=== PATIENT | female | born 1965 | race Caucasian/White ===

== ENCOUNTER → 2016-08-19 | Outpatient (CLI) | payer OTHER ==
[~2016-08-19] MED LIST: ATOR10TA9 PO; DILT180C72 PO; HYDR25TA6 PO; OMEP-110 PO
[2016-08-19 16:19] LABS: ASPARTATE AMINO TRANSFERASE 20 U/L (15-37); BLOOD UREA NITROGEN 24 mg/dL (7-18)
== END | disposition home or self-care (01) ==
LOC: STAR 15:28
PROVIDERS: ATTEND Obstetrics & Gynecology Female Pelvic Medicine and Reconstructive Surgery
DX: Z01.812 Encounter for preprocedural laboratory examination (principal); N39.3 Stress incontinence (female) (male); R10.2 Pelvic and perineal pain; N81.6 Rectocele; N81.10 Cystocele, unspecified
CPT/HCPCS: 36415; 80053

== ENCOUNTER 2016-08-24 10:35 | Day surgery (SDC) | payer OTHER ==
[~2016-08-24] VITALS: Ht 165.1 cm; Wt 60.0 kg
[~2016-08-24 10:35] MED LIST changes: +BUPIVACAINE/PF-EPI 0.25% 1:200K ONE; +FENTANYL PF 250 MCG/5ML ONE; +MIDAZOLAM 1 MG/ML, 2ML ONE; +NEOMY/POLYMYXIN B GU IRR. 1 ML IRRIG ONE
[2016-08-24] MEDS ORDERED: LACTATED RINGERS 1,000 ML IV SCH (11:38)
[2016-08-24] MEDS ORDERED: LABETALOL 5MG/ML, 20ML IV PRN (12:30)
[2016-08-24] MEDS ORDERED: MEPERIDINE/PF 25MG/0.5ML IVPush PRN (12:30)
[2016-08-24] MEDS ORDERED: HYDROmorphone 1 MG/ML, 1ML IV PRN (12:30)
[2016-08-24] MEDS ORDERED: ONDANSETRON 2MG/ML, 2ML IVPush PRN (12:30)
[2016-08-24] MEDS ORDERED: OXYcodone 5 MG/5 ML ORAL.SOL UDC PO PRN (12:30)
[2016-08-24] MEDS ORDERED: METOCLOPRAMIDE 5 MG/ML, 2ML IV PRN (12:30)
[2016-08-24] MEDS ORDERED: PROMETHAZINE 25 MG/ML, 1ML IV PRN (12:30)
[2016-08-24] MEDS ORDERED: MIDAZOLAM 1 MG/ML, 2ML IV PRN (12:30)
[2016-08-24] MEDS ORDERED: hydrALAzine 20 MG/ML, 1ML IV PRN (12:30)
[2016-08-24] MEDS ORDERED: FENTANYL PF 100 MCG/2ML IV PRN (12:30)
[2016-08-24] MEDS ORDERED: ACETAMINOPHEN 325 MG TABLET PO PRN (12:30)
[2016-08-24] MEDS ORDERED: ONDANSETRON 2MG/ML, 2ML ONE (13:16)
[2016-08-24] MEDS ORDERED: DEXAMETHASONE 4 MG/ML, 1ML ONE (13:16)
[2016-08-24] MEDS ORDERED: PROPOFOL 10 MG/ML, 20ML ONE (13:16)
[2016-08-24] MEDS ORDERED: EPHEDRINE 50 MG/ML, 1ML ONE (13:16)
[2016-08-24] MEDS ORDERED: ROCURONIUM 10 MG/ML ONE (13:16)
[2016-08-24] MEDS ORDERED: SUCCINYLCHOLINE 20 MG/ML, 10ML ONE (13:16)
[2016-08-24] MEDS ORDERED: KETOROLAC 30 MG/1 ML ONE (13:16)
[2016-08-24] MEDS ORDERED: CEFAZOLIN 1,000 MG ONE (13:16)
[2016-08-24] MEDS ORDERED: FUROSEMIDE 20 MG/2 ML ONE (13:51)
[2016-08-24] MEDS ORDERED: OXYcodone 5 MG/5 ML ORAL.SOL UDC ONE (14:50)
[2016-08-24] MEDS ORDERED: ACETAMINOPHEN 325 MG TABLET ONE (14:50)
[2016-08-24] MEDS ORDERED: ACETAMINOPHEN 650 MG/20.3 ML UDC ONE (14:50)
== END 2016-08-24 18:38 | disposition home or self-care (01) ==
LOC: OUT 10:35
PROVIDERS: ATTEND Obstetrics & Gynecology Female Pelvic Medicine and Reconstructive Surgery
DX: N81.11 Cystocele, midline (principal); N39.46 Mixed incontinence; N81.6 Rectocele; N81.5 Vaginal enterocele; I10 Essential (primary) hypertension; K21.9 Gastro-esophageal reflux disease without esophagitis; Z87.19 Personal history of other diseases of the digestive system; Z90.710 Acquired absence of both cervix and uterus; Z87.891 Personal history of nicotine dependence; F12.90 Cannabis use, unspecified, uncomplicated; Z72.89 Other problems related to lifestyle; F15.90 Other stimulant use, unspecified, uncomplicated
CPT/HCPCS: 57265; 57282; 57288; C1771; J0330; J0690; J1100; J1885; J1940; J2250; J2405; J2704; J3010; J7120

== ENCOUNTER 2017-11-27 23:08 | Inpatient (IN) | payer OTHER ==
[~2017-11-27] VITALS: Ht 165.1 cm; Wt 70.7 kg
[~2017-11-27 23:08] MED LIST changes: -BUPIVACAINE/PF-EPI 0.25% 1:200K ONE; -FENTANYL PF 250 MCG/5ML ONE; -MIDAZOLAM 1 MG/ML, 2ML ONE; -NEOMY/POLYMYXIN B GU IRR. 1 ML IRRIG ONE
[2017-11-28] MEDS ORDERED: SODIUM CHLORIDE FLUSH 10ML SYR IVF ONE
[2017-11-28] MEDS ORDERED: ACETAMINOPHEN 500 MG TABLET PO ONE
[2017-11-28 00:13] LABS: MEAN CORPUSCULAR HEMOGLOBIN 31.1 pg (27.0-34.8); MEAN CORPUSCULAR HGB CONC 34.1 g/dL (32.4-35.8); MEAN CORPUSCULAR VOLUME 91.3 fL (80-100); MEAN PLATELET VOLUME 8.6 fL (7.4-10.4); PLATELET COUNT 308 x10^3/uL (130-400); RED BLOOD COUNT 4.14 x10^6/uL (3.82-5.3); RED CELL DISTRIBUTION WIDTH 13.4 % (9.6-15.2)
[2017-11-28 00:25] LABS: ALANINE AMINOTRANSFERASE 27 U/L (12-78); ALBUMIN 2.5 g/dL (3.4-5.0); ANION GAP 12 mmol/L (5-15); CALCIUM 8.9 mg/dL (8.5-10.1); CHLORIDE 101 mmol/L (98-107)
[2017-11-28 00:28] LABS: ALKALINE PHOSPHATASE 175 U/L (45-117); BILIRUBIN,TOTAL 0.5 mg/dL (0.2-1.0); CREATININE 0.68 mg/dL (0.55-1.02); MD YES
[2017-11-28 00:30] LABS: BAND#(MANUAL) 1.34 x10^3/uL; BANDS%(MANUAL) 7 % (0-7); LYMPH#(MANUAL) 0.96 x10^3/uL (1-3.4); LYMPHS% (MANUAL) 5 % (22-44); MONOS#(MANUAL) 0.57 x10^3/uL (0.3-2.7); MONOS% (MANUAL) 3 % (2-9); SEG#(MANUAL) 16.24 x10^3/uL (1.8-6.8); SEGS% (MANUAL) 85 % (42-75)
[2017-11-28 00:31] LABS: <PLATELET ESTIMATE> ADEQUATE; <PLT MORPHOLOGY> NORMAL PLT MORPH; <RBC MORPHOLOGY> NORMAL
[2017-11-28] MEDS ORDERED: ACETAMINOPHEN 500 MG TABLET ONE (00:44)
[2017-11-28] MEDS ORDERED: SODIUM CHLORIDE 0.9% 1,000 ML IV ONE (01:13)
[2017-11-28] MEDS ORDERED: CEFTRIAXONE 1,000 MG in SODIUM CHLORIDE 0.9% 50 ML IV ONE ×2 (01:30→02:00)
[2017-11-28] MEDS ORDERED: SODIUM CHLORIDE 0.9% 1,000ML IVBOLUS ONE ×2 (01:30)
[2017-11-28] MEDS ORDERED: CEFTRIAXONE PMX 1GM/50ML 50 ML ONE (01:30)
[2017-11-28] MEDS ORDERED: AZITHROMYCIN 500 MG in SODIUM CHLORIDE 0.9% 250 ML IV ONE (01:30)
[2017-11-28] MEDS ORDERED: ONDANSETRON 2MG/ML, 2ML IVPush PRN ×2 (01:30→02:30)
[2017-11-28] MEDS ORDERED: IBUPROFEN 800 MG TABLET PO ONE (02:00)
[2017-11-28] MEDS ORDERED: POTASSIUM CHLORIDE 20 MEQ TAB.ER.PRT PO ONE (02:00)
[2017-11-28 02:30] VITALS: BP 109/66
[2017-11-28] MEDS ORDERED: DOCUSATE 100 MG CAPSULE PO PRN (02:30)
[2017-11-28] MEDS ORDERED: ONDANSETRON ODT 4 MG PO PRN (02:30)
[2017-11-28] MEDS ORDERED: PROMETHAZINE 25 MG/ML, 1ML IM PRN (02:30)
[2017-11-28] MEDS ORDERED: ACETAMINOPHEN 325 MG TABLET PO PRN (02:30)
[2017-11-28] MEDS ORDERED: morphine SULFATE 10 MG/ML, 1ML IVPush PRN (02:30)
[2017-11-28] MEDS ORDERED: POLYETHYLENE GLYCOL 17 GM PACKET PO PRN (02:30)
[2017-11-28] MEDS ORDERED: hydrALAzine 20 MG/ML, 1ML IVPush PRN (02:30)
[2017-11-28] MEDS ORDERED: BISACODYL 10 MG SUPP PR PRN (02:30)
[2017-11-28] MEDS ORDERED: LABETALOL 5MG/ML, 20ML IVPush PRN (02:30)
[2017-11-28 02:38] LABS: HEMOGLOBIN A1C 5.6 % (4.2-6.3)
[2017-11-28 02:39] LABS: FREE T4 (FREE THYROXINE) 0.97 ng/dL (0.76-1.46); THYROID STIMULATING HORMONE 0.925 mIU/L (0.358-3.740)
[2017-11-28] MEDS ORDERED: MAGNESIUM SULFATE PMX 2GM/50ML 50 ML IV ONE (03:00)
[2017-11-28] MEDS: NS + 40MEQ KCL 1,000 ML IV SCH ×3 (03:30→20:58)
[2017-11-28] MEDS: AZITHROMYCIN 500 MG in SODIUM CHLORIDE 0.9% 250 ML IV SCH (03:31)
[2017-11-28] MEDS: HEPARIN 5,000 UNITS/ML, 1ML SQ SCH ×3 (03:31→20:00)
[2017-11-28 04:33] LABS: ANION GAP 10 mmol/L (5-15); CALCIUM 8.2 mg/dL (8.5-10.1); CHLORIDE 104 mmol/L (98-107); CREATININE 0.92 mg/dL (0.55-1.02)
[2017-11-28 07:10] VITALS: BP 106/71
[2017-11-28] MEDS: MAGNESIUM CHLORIDE 64 MG TABLET.DR PO SCH ×2 (08:58→20:00)
[2017-11-28 10:11] LABS: CULTURE INDICATED? YES; MICROSCOPIC INDICATED
[2017-11-28 11:12] LABS: ANION GAP 9 mmol/L (5-15); CALCIUM 8.5 mg/dL (8.5-10.1); CHLORIDE 107 mmol/L (98-107)
[2017-11-28 11:13] LABS: CREATININE 0.68 mg/dL (0.55-1.02)
[2017-11-28 13:15] VITALS: BP 132/79
[2017-11-28 19:51] VITALS: BP 151/88
[2017-11-28] MEDS: GUAIFENESIN ER 600 MG TABLET PO SCH (20:00)
[2017-11-28] MEDS: ATORVASTATIN 10 MG TABLET PO SCH (20:00)
[2017-11-29] VITALS (8 sets, daily range): BP systolic 149–182; BP diastolic 83–107
[2017-11-29] MEDS: CEFTRIAXONE 2 GM in SODIUM CHLORIDE 0.9% 50 ML IV SCH (00:33)
[2017-11-29] MEDS: OXYcodone IR 5MG TABLET PO PRN ×2 (00:33→20:26)
[2017-11-29] MEDS: AZITHROMYCIN 500 MG in SODIUM CHLORIDE 0.9% 250 ML IV SCH (03:06)
[2017-11-29] MEDS: HEPARIN 5,000 UNITS/ML, 1ML SQ SCH ×3 (03:06→20:26)
[2017-11-29 05:00] LABS: MEAN CORPUSCULAR HEMOGLOBIN 31.4 pg (27.0-34.8); MEAN CORPUSCULAR HGB CONC 33.8 g/dL (32.4-35.8); MEAN CORPUSCULAR VOLUME 93.1 fL (80-100); MEAN PLATELET VOLUME 8.8 fL (7.4-10.4); PLATELET COUNT 303 x10^3/uL (130-400); RED BLOOD COUNT 3.39 x10^6/uL (3.82-5.3); RED CELL DISTRIBUTION WIDTH 13.7 % (9.6-15.2)
[2017-11-29 05:01] LABS: ALBUMIN 1.9 g/dL (3.4-5.0); ANION GAP 10 mmol/L (5-15); CALCIUM 8.4 mg/dL (8.5-10.1); CHLORIDE 108 mmol/L (98-107)
[2017-11-29] MEDS: NS + 40MEQ KCL 1,000 ML IV SCH ×2 (05:07→09:17)
[2017-11-29 05:08] LABS: ALANINE AMINOTRANSFERASE 22 U/L (12-78); ALKALINE PHOSPHATASE 227 U/L (45-117); BILIRUBIN,TOTAL 0.4 mg/dL (0.2-1.0); CHOL/HDL RATIO 4.6; CHOLESTEROL, TOTAL 101 mg/dL (140-239); HDL CHOL % 22 % (28-40); HDL CHOLESTEROL (DIRECT) 22 mg/dL (40-60); LDL CHOLESTEROL,CALCULATED 54 mg/dL (54-169); LDL/HDL RATIO 2.5 (0.5-3.0); TRIGLYCERIDES 127 mg/dL (50-200); VLDL CHOLESTEROL 25 mg/dL (0-25)
[2017-11-29 05:44] LABS: MD YES
[2017-11-29 05:48] LABS: <PLATELET ESTIMATE> ADEQUATE; BAND#(MANUAL) 0.35 x10^3/uL; BANDS%(MANUAL) 2 % (0-7); LARGE PLATELETS 1+; LYMPH#(MANUAL) 1.59 x10^3/uL (1-3.4); LYMPHS% (MANUAL) 9 % (22-44); METAMYELOCYTES# (MANUAL) 0.18 x10^3/uL (0-0); METAMYELOCYTES% (MANUAL) 1 % (0-1); MONOS#(MANUAL) 0.89 x10^3/uL (0.3-2.7); MONOS% (MANUAL) 5 % (2-9); MYELOCYTES# (MANUAL) 0.18 x10^3/uL (0-0); MYELOCYTES% (MANUAL) 1 % (0-0); SEG#(MANUAL) 14.51 x10^3/uL (1.8-6.8); SEGS% (MANUAL) 82 % (42-75)
[2017-11-29 05:49] LABS: TOXIC GRAN 1+
[2017-11-29 05:50] LABS: POLYCHROMASIA 1+
[2017-11-29] MEDS ORDERED: SODIUM CHLORIDE INHALATION 7%, 4 ML NPPB ONE (09:00)
[2017-11-29] MEDS: GUAIFENESIN ER 600 MG TABLET PO SCH ×2 (09:17→20:26)
[2017-11-29] MEDS: MAGNESIUM CHLORIDE 64 MG TABLET.DR PO SCH ×2 (09:17→20:25)
[2017-11-29] MEDS: ENALAPRILAT 1.25 MG/ML, 2ML IVPush PRN ×2 (14:35→15:26)
[2017-11-29] MEDS ORDERED: AMLODIPINE 5 MG TABLET PO ONE (16:30)
[2017-11-29] MEDS ORDERED: LORazepam 0.5MG TABLET PO PRN (20:00)
[2017-11-29] MEDS ORDERED: LORazepam 1MG TABLET PO PRN ×4 (20:00)
[2017-11-29] MEDS ORDERED: LORazepam 2 MG/ML, 1ML IV PRN ×5 (20:00)
[2017-11-29] MEDS ORDERED: FOLIC ACID 5 MG/ML IM ONE (20:00)
[2017-11-29] MEDS: ATORVASTATIN 10 MG TABLET PO SCH (20:26)
[2017-11-29] MEDS ORDERED: FOLIC ACID 1 MG TABLET PO ONE (20:30)
[2017-11-30 01:07] VITALS: BP 162/85
[2017-11-30] MEDS: CEFTRIAXONE 2 GM in SODIUM CHLORIDE 0.9% 50 ML IV SCH (01:19)
[2017-11-30] MEDS: AZITHROMYCIN 500 MG in SODIUM CHLORIDE 0.9% 250 ML IV SCH (03:44)
[2017-11-30] MEDS: HEPARIN 5,000 UNITS/ML, 1ML SQ SCH ×3 (03:45→19:29)
[2017-11-30] MEDS: OXYcodone IR 5MG TABLET PO PRN ×2 (04:54→11:18)
[2017-11-30 05:03] LABS: MEAN CORPUSCULAR HEMOGLOBIN 31.6 pg (27.0-34.8); MEAN CORPUSCULAR HGB CONC 34.2 g/dL (32.4-35.8); MEAN CORPUSCULAR VOLUME 92.2 fL (80-100); MEAN PLATELET VOLUME 8.6 fL (7.4-10.4); PLATELET COUNT 345 x10^3/uL (130-400); RED BLOOD COUNT 3.48 x10^6/uL (3.82-5.3); RED CELL DISTRIBUTION WIDTH 13.9 % (9.6-15.2)
[2017-11-30 05:13] LABS: ALBUMIN 1.9 g/dL (3.4-5.0); ANION GAP 11 mmol/L (5-15); CHLORIDE 104 mmol/L (98-107)
[2017-11-30 05:17] LABS: CALCIUM 8.4 mg/dL (8.5-10.1); CREATININE 0.45 mg/dL (0.55-1.02)
[2017-11-30 05:31] LABS: MD YES
[2017-11-30 05:36] LABS: BAND#(MANUAL) 0.12 x10^3/uL; BANDS%(MANUAL) 1 % (0-7); EOS#(MANUAL) 0.37 x10^3/uL (0.0-0.4); EOS% (MANUAL) 3 % (1-7); LYMPH#(MANUAL) 2.85 x10^3/uL (1-3.4); LYMPHS% (MANUAL) 23 % (22-44); METAMYELOCYTES# (MANUAL) 0.12 x10^3/uL (0-0); METAMYELOCYTES% (MANUAL) 1 % (0-1); MONOS#(MANUAL) 0.37 x10^3/uL (0.3-2.7); MONOS% (MANUAL) 3 % (2-9); MYELOCYTES# (MANUAL) 0.12 x10^3/uL (0-0); MYELOCYTES% (MANUAL) 1 % (0-0); SEG#(MANUAL) 8.43 x10^3/uL (1.8-6.8); SEGS% (MANUAL) 68 % (42-75)
[2017-11-30 05:37] LABS: <PLATELET ESTIMATE> ADEQUATE; <RBC MORPHOLOGY> NORMAL
[2017-11-30 05:38] LABS: LARGE PLATELETS 1+; TOXIC GRAN 1+
[2017-11-30] MEDS ORDERED: AMLODIPINE 5 MG TABLET PO ONE (06:00)
[2017-11-30 06:59] VITALS: BP 170/91
[2017-11-30] MEDS: DILTIAZEM CD 180 MG CAP.ER.24H PO SCH (08:48)
[2017-11-30] MEDS: GUAIFENESIN ER 600 MG TABLET PO SCH ×2 (08:48→20:31)
[2017-11-30] MEDS: MULTIVITAMINS/MINERALS TABLET PO SCH (08:48)
[2017-11-30] MEDS: MAGNESIUM CHLORIDE 64 MG TABLET.DR PO SCH ×2 (08:48→20:30)
[2017-11-30 09:46] VITALS: BP 168/86
[2017-11-30 13:38] VITALS: BP 132/84
[2017-11-30 20:26] VITALS: BP_SYST 163; BP_DIAS 90; BP_DIAS 96
[2017-11-30] MEDS: ATORVASTATIN 10 MG TABLET PO SCH (20:30)
[2017-12-01] MEDS: CEFTRIAXONE 2 GM in SODIUM CHLORIDE 0.9% 50 ML IV SCH (00:33)
[2017-12-01] MEDS: OXYcodone IR 5MG TABLET PO PRN ×3 (00:34→22:10)
[2017-12-01 01:30] VITALS: BP 156/85
[2017-12-01] MEDS: AZITHROMYCIN 500 MG in SODIUM CHLORIDE 0.9% 250 ML IV SCH (03:17)
[2017-12-01] MEDS: HEPARIN 5,000 UNITS/ML, 1ML SQ SCH ×3 (03:18→20:45)
[2017-12-01 05:10] LABS: BASOPHILS # (AUTO) 0.18 x10^3/uL (0-0.1); BASOPHILS % (AUTO) 2 % (0-1); EOSINOPHILS % (AUTO) 2 % (1-7); LYMPHOCYTES # (AUTO) 2.34 x10^3/uL (1-3.4); LYMPHOCYTES % (AUTO) 19 % (22-44); MD NO; MEAN CORPUSCULAR HGB CONC 34.1 g/dL (32.4-35.8); MEAN PLATELET VOLUME 7.8 fL (7.4-10.4); MONOCYTES # (AUTO) 0.44 x10^3/uL (0.2-0.8); MONOCYTES % (AUTO) 4 % (2-9); NEUTROPHILS # (AUTO) 9.35 x10^3/uL (1.8-6.8); NEUTROPHILS % (AUTO) 75 % (42-75); PLATELET COUNT 447 x10^3/uL (130-400); RED BLOOD COUNT 3.75 x10^6/uL (3.82-5.3); RED CELL DISTRIBUTION WIDTH 13.4 % (9.6-15.2)
[2017-12-01 05:36] LABS: ANION GAP 10 mmol/L (5-15); CALCIUM 9.3 mg/dL (8.5-10.1); CHLORIDE 101 mmol/L (98-107)
[2017-12-01 05:39] LABS: CREATININE 0.53 mg/dL (0.55-1.02)
[2017-12-01 07:24] VITALS: BP 152/86
[2017-12-01] MEDS: DILTIAZEM CD 180 MG CAP.ER.24H PO SCH (08:09)
[2017-12-01] MEDS: MULTIVITAMINS/MINERALS TABLET PO SCH (08:09)
[2017-12-01] MEDS: GUAIFENESIN ER 600 MG TABLET PO SCH ×2 (08:09→20:45)
[2017-12-01 13:16] VITALS: BP 146/81
[2017-12-01 19:22] VITALS: BP 151/84
[2017-12-01] MEDS: DOXYCYCLINE 100MG TABLET PO SCH (20:45)
[2017-12-01] MEDS: ATORVASTATIN 10 MG TABLET PO SCH (20:45)
[2017-12-02 01:27] VITALS: BP 158/92
[2017-12-02] MEDS: OXYcodone IR 5MG TABLET PO PRN ×3 (03:55→13:52)
[2017-12-02] MEDS: HEPARIN 5,000 UNITS/ML, 1ML SQ SCH ×2 (03:55→13:33)
[2017-12-02 05:37] LABS: BASOPHILS # (AUTO) 0.06 x10^3/uL (0-0.1); BASOPHILS % (AUTO) 1 % (0-1); EOSINOPHILS # (AUTO) 0.26 x10^3/uL (0-0.4); EOSINOPHILS % (AUTO) 2 % (1-7); LYMPHOCYTES # (AUTO) 2.62 x10^3/uL (1-3.4); LYMPHOCYTES % (AUTO) 21 % (22-44); MD NO; MEAN CORPUSCULAR HEMOGLOBIN 31.3 pg (27.0-34.8); MEAN CORPUSCULAR HGB CONC 34.1 g/dL (32.4-35.8); MEAN PLATELET VOLUME 7.3 fL (7.4-10.4); MONOCYTES # (AUTO) 0.55 x10^3/uL (0.2-0.8); MONOCYTES % (AUTO) 4 % (2-9); NEUTROPHILS % (AUTO) 72 % (42-75); PLATELET COUNT 548 x10^3/uL (130-400); RED BLOOD COUNT 3.92 x10^6/uL (3.82-5.3); RED CELL DISTRIBUTION WIDTH 13.9 % (9.6-15.2)
[2017-12-02 05:42] LABS: ALBUMIN 2.4 g/dL (3.4-5.0); ANION GAP 8 mmol/L (5-15); CALCIUM 9.7 mg/dL (8.5-10.1); CHLORIDE 102 mmol/L (98-107)
[2017-12-02 08:04] VITALS: BP 155/94
[2017-12-02] MEDS ORDERED: AZITHROMYCIN 500 MG TABLET PO SCH (09:00)
[2017-12-02] MEDS ORDERED: DILTIAZEM 240 MG CAP.ER.24H PO SCH (09:00)
[2017-12-02] MEDS: MULTIVITAMINS/MINERALS TABLET PO SCH (09:29)
[2017-12-02] MEDS: DOXYCYCLINE 100MG TABLET PO SCH (09:29)
[2017-12-02] MEDS: GUAIFENESIN ER 600 MG TABLET PO SCH (09:29)
[2017-12-02] MEDS ORDERED: DOXY100T PO (14:12)
[2017-12-02] MEDS ORDERED: ATOR10TA9 PO (14:12)
[2017-12-02] MEDS ORDERED: DILT240C55 PO (14:12)
[2017-12-02] MEDS ORDERED: POLY17PO5 PO (14:12)
[2017-12-02] MEDS ORDERED: GUAI600T31 PO (14:12)
[2017-12-02 14:34] VITALS: BP 138/88
== END 2017-12-02 17:50 | disposition home or self-care (01) | DRG 871 ==
LOC: ED 11-28 01:47 → EDIP 11-28 02:00 → 3NW 11-28 02:10
PROVIDERS: ADMIT Internal Medicine; ATTEND Internal Medicine
DX: A41.9 Sepsis, unspecified organism (principal); E43 Unspecified severe protein-calorie malnutrition; J15.9 Unspecified bacterial pneumonia; J96.01 Acute respiratory failure with hypoxia; K59.00 Constipation, unspecified; E78.5 Hyperlipidemia, unspecified; E87.6 Hypokalemia; I10 Essential (primary) hypertension; Z68.25 Body mass index [BMI] 25.0-25.9, adult; Z87.891 Personal history of nicotine dependence
CPT/HCPCS: 36415; 71045; 71046; 80048; 80053; 80061; 80069; 81001; 83036; 83605; 83735; 84145; 84439; 84443; 85025; 87040; 87070; 87077; 87086; 87205; 93005; 94640; 99291; J0456; J0696; J1644; J3475; J3480; J7030; J7050

== ENCOUNTER → 2020-04-25 | Outpatient (CLI) | payer OTHER ==
[~2020-04-25] MED LIST changes: +DILT240C55 PO; +DOXY100T PO; +GUAI600T31 PO; +POLY17PO5 PO
[2020-04-25 16:43] LABS: ANION GAP 5 mmol/L (5-15); CALCIUM 8.8 mg/dL (8.5-10.1); CHLORIDE 109 mmol/L (98-107); CHOLESTEROL, TOTAL 266 mg/dL (140-239); CREATININE 0.68 mg/dL (0.55-1.02); TRIGLYCERIDES 981 mg/dL (50-200)
[2020-04-25 16:44] LABS: CHOL/HDL RATIO 5.9; HDL CHOL % 17 % (28-40); HDL CHOLESTEROL (DIRECT) 45 mg/dL (40-60)
[2020-04-25 16:48] LABS: MICROSCOPIC AUTO
== END | disposition home or self-care (01) ==
LOC: LAB 15:40
DX: I10 Essential (primary) hypertension (principal); K21.9 Gastro-esophageal reflux disease without esophagitis
CPT/HCPCS: 36415; 80048; 80061; 81001; 83036; 87338